=== PATIENT | male | born 1950 | race Caucasian/White ===

== ENCOUNTER 2019-03-18 14:10 | Inpatient (IN) | payer OTHER ==
[~2019-03-18] VITALS: Ht 177.8 cm; Wt 113.4 kg
[~2019-03-18 14:10] MED LIST: HYDACE5 PO; IBUP800 PO
[2019-03-18 15:15] LABS: BASOPHILS ABSOLUTE AUTO 0.02 K/mm3 (0.00-0.23); BASOPHILS PERCENT AUTO 0 % (0-2); EOSINOPHILS ABSOLUTE AUTO 0.01 K/mm3 (0.00-0.68); EOSINOPHILS PERCENT AUTO 0 % (0-6); Hematocrit 48.9 % (37.0-53.0); Hemoglobin 16.4 g/dL (13.5-17.5); IMMATURE GRAN ABSOLUTE AUTO 0.05 K/mm3 (0.00-0.10); IMMATURE GRAN PERCENT AUTO 0 % (0-1); LYMPHOCYTES ABSOLUTE AUTO 0.89 K/mm3 (0.84-5.20); LYMPHOCYTES PERCENT AUTO 6 % (21-46); MONOCYTES ABSOLUTE AUTO 0.76 K/mm3 (0.16-1.47); MONOCYTES PERCENT AUTO 5 % (4-13); Mean Corpuscular HGB 29.3 pg (26.0-34.0); Mean Corpuscular HGB Conc 33.5 g/dL (31.5-36.5); Mean Corpuscular Volume 87 fL (80-100); Mean Platelet Volume 11.1 fL (9.1-12.4); NEUTROPHILS ABSOLUTE AUTO 13.37 K/mm3 (1.96-9.15); NEUTROPHILS PERCENT AUTO 89 % (41-73); Platelet Count 234 K/mm3 (150-400); RDW Coefficient Variation 12.3 % (11.7-14.2); RDW Standard Deviation 39.7 fL (35.1-46.3)
[2019-03-18 15:28] LABS: Alanine Aminotransfer (ALT/SGP 40 U/L (12-78); Albumin/Globulin Ratio 1.1 (0.8-1.8); Alk Phos 88 U/L (50-136); Anion Gap 14 mmol/L (6-16); Aspartate Aminotrans (AST/SGOT 41 U/L (12-37); Bilirubin, Total 0.6 mg/dL (0.1-1.0); Blood Urea Nitrogen 26 mg/dL (8-24); Bun/Creatinine Ratio 16.6 (12.0-20.0); CO2, Blood 21 mmol/L (21-32); Calcium, Blood 9.4 mg/dL (8.5-10.1); Chloride, Blood 104 mmol/L (98-108); Creatinine, Blood 1.57 mg/dL (0.60-1.20); Globulin, Blood 3.6 g/dL (2.2-4.0); Glomerular Filtration Rate 47 (60-); Glucose, Blood 112 mg/dL (70-99); Potassium, Blood 3.9 mmol/L (3.5-5.5); Sodium, Blood 139 mmol/L (136-145); Total Protein, Blood 7.6 g/dL (6.4-8.2); Troponin I <0.015 ng/mL (0.000-0.040)
[2019-03-18] MEDS ORDERED: Aspirin EC81 MG PO (15:40)
[2019-03-18] MEDS ORDERED: METO100ER PO (15:40)
[2019-03-18] MEDS ORDERED: Benicar40 MG PO (15:40)
[2019-03-18 16:25] LABS: Free Thyroxine 1.3 ng/dL (0.70-1.60)
[2019-03-18 16:30] LABS: Thyroid Stimulating Hormone 1.57 uIU/mL (0.360-4.800)
--- NOTE | 2019-03-18 18:50 | NUR ---
Shift Summary Received pt from ER. A/O, pleasant and cooperative. SBA to bathroom. NS @ 100 mls/hr. Pt settled to room and oriented to call light. Denies chest pain and nausea at this time.
--- NOTE | 2019-03-18 18:53 | NUR ---
STUDENT HAD PT CARE PLEASE REFER TO STUDENT NOTE FOR SHIFT SUMMARY.
[2019-03-19 05:49] LABS: Anion Gap 8 mmol/L (6-16); Blood Urea Nitrogen 21 mg/dL (8-24); Bun/Creatinine Ratio 21.5 (12.0-20.0); CO2, Blood 25 mmol/L (21-32); Calcium, Blood 8.5 mg/dL (8.5-10.1); Chloride, Blood 109 mmol/L (98-108); Creatinine, Blood 0.98 mg/dL (0.60-1.20); Glomerular Filtration Rate >60 (60-); Glucose, Blood 82 mg/dL (70-99); Potassium, Blood 3.9 mmol/L (3.5-5.5); Sodium, Blood 142 mmol/L (136-145)
--- NOTE | 2019-03-19 07:43 | NUR ---
SUMMARY: NEW ADMIT SYNCOPAL EPISODE ON DR. DE DIOS'S SERVICE WITH DR. STERN ADMITTING. VSS, AFEBRILE, VOIDING ADEQUATE AMOUNTS CLEAR YELLOW URINE AND TOLERATING PO INTAKE. PT UP WITH SBA FOR BRP AND USES CALL LIGHT APPROPRIATELY. INCREASED TROPONIN FROM ER AT 1.35 IN NOC AND PT REMAINS ASYMPTOMATIC DENIES CP, SOB, DIZZINESS OR VISUAL CHANGES. CONTINUE TO MONITOR.
--- NOTE | 2019-03-19 08:52 | NUR ---
Echocardiogram completed.
[2019-03-19 09:04] LABS: Cholesterol 182 mg/dL (50-200); Triglycerides 105 mg/dL (30-160)
--- NOTE | 2019-03-19 09:55 | NUR ---
PT PLEASANT COOP A/O. DENIES PAIN. NO CHEST PAIN. PRESSURE. AT BEDSIDE. H/R REG, NO MURMER NOTED. PER TTELE: CONVERTED APPROX MIDNITE LAST MAXIMO. NOW NSR AT 70. NOTIFIED IN ROOM. LUNGS CLEAR, RESP EASY, UNLABORED. ON R/A. BT X4 LAST BM THIS AM. VOIDS BARHROOM. BED IN LOW POSITION, CALL LITE IN REACH, CALLS APPROP
--- NOTE | 2019-03-19 10:35 | NUR ---
0755 DAIN CALLED FROM LAB. TROPONIN LEVEL AT 1.130 WAS 1.35 THIS AM. IMPROVED. EXPECTED RESULT. DISCUSSED WITH FARM LOAN REPRESENTATIVE. ALEX. DID NOT CALL DR LEE. 0855 DAIN LAB CALLED. TROP 0.97 OFF AM 500 AM. ADVISED ORDERS SHOULD BE NEW TROP. PER DR LEE ORDERS. HE WILL CHECK. 0920 [facility] CALLED. NEED NEW TROP ORDERS. DONE. 1035 DAIN LAB CALLED. TROP 0.[address] NOT CALLED. DISCUSSED WITH FARM LOAN REPRESENTATIVE. LISE.
--- NOTE | 2019-03-19 15:46 | NUR ---
PT REQUEST STOP IVF. EATING/DRINKING. CALLED DR LEE. [facility] WITH HIS SEC.
--- NOTE | 2019-03-19 17:04 | NUR ---
DR WEBER CALLED, NO INTERVENTIONALIST TODAY. OKAY RESUME DIET. PLAN IS TO DO NUC STRESS TEST TOMORROW. NPO MIDNITE. IF POSITIVE, PLAN TO STAY FOR INTERVENTION., IF NEGATIVE, PLAN TO D.C TOMORROW. TREAT OUTPATIENT. DR WILL SEE TOMORROW.
--- NOTE | 2019-03-19 17:08 | NUR ---
PT PLEASANT TODAY. NO C/O CHEST PAIN, PRESSURE. DR JAMES TO ORDER NUC STRESS TEST FOR TOMORROW. EXPECT NPO MIDNITE. NO CAFFEINE. PT HAS REQUESTED STOP IVF. CALLED DR LEE. TC. NO OTHER CONCERNS AT THIS TIME. BED IN LOW POSITITION, CALL LITE IN REACH. CALLS APPROP.
--- NOTE | 2019-03-20 00:12 | NUR ---
0012: PT MADE NPO FOR STRESS TEST PROCEDURE LATER THIS DAY.
--- NOTE | 2019-03-20 06:53 | NUR ---
SUMMARY: ADMIT DAY 2 SYNCOPAL EPISODE WITH INCREASED TROPONIN ON DR. DE DIOS'S SERVICE. NO ACUTE CHANGES THIS SHIFT. VSS, AFEBRILE, TOLERATING PO INTAKE AND VOIDING WELL. DENIES CP, SOB, DIZZINESS, VISUAL CHANGES. NPO FOR STRESS TEST TODAY.
--- NOTE | 2019-03-20 07:45 | NUR ---
PT PLEASANT COOP A/O DENIES ANY CHEST PAIN, PRESSURE. AT BEDSIDE. H/R REG, NO MURMER NOTED. PER TELE: NSR AT 72. LLUNGS CLEAR. RESP EASY UNLABORED. ON R.A. BT X4 LAST BM TODAY. WALKS TO BATHROOM TO VOID. INDEPENDANT IN ROOM. BED IN LOW POSITION, CALL LITE IN REACH, CALLS APPROP.
--- NOTE | 2019-03-20 11:00 | NUR ---
PT REALLY INTERESTED TO KNOW IF GOING TO STRESS TEST OR TO ANGIO. STATES DR LEE TOLD HIMN MAYBE NOT STRESS JUST ANGIO. STATES THOUGHT DR WOULD TALK TO OR GUS. TOLD HIM I WOULD TRY TRACK DOWN. NO ORDERS WERE PLACED BY DR WEBER FROM [facility] OR THIS AM. PT REMAINS NPO. CALLED DR TOVAR. [facility]. FOUND DR WEBER IN PCU. HE TO CONTACT DR Mcarthur AND LET ME KNOW
--- NOTE | 2019-03-20 12:00 | NUR ---
CHARGE DISCUSSED PLAN WITH DR WEBER IN [facility]. OKAYED ORDERS FOR STRESS TEST. CALLED [facility]. NOT ABLE TO DO TODAY. WILL DO BOTH TEST TOMORROW, SAT. 8 AND 1PM. NOTIFIED PT OKAY TO EAT TODAY. NPO MIDNITE. PT AND FAMILY FRUSTRATED. TALKED WITH THEM TO HELP THEM UNDERSTAND THAT WE JUST DONT HAVE ABILITY TO DO TODAY, WILL START TOMORROW.
--- NOTE | 2019-03-20 19:47 | NUR ---
PT PLEASANT TODAY. DENIES CHEST PAIN PRESSURE TODAY. REMAINS IN NSR. NOT HAPPY ABOUT HAVING TO WAIT OUT TODAY. APPEARS TO UNDERSSTAND. HAVE DISCUSSED WITH ALMOND BLANCHER HAND. PLANS FOR NPO MIDNITE. TEST 8AM, THEN EAT. 2ND HALF TEST 1PM. NO OTHER CONCERNS AT THIS TIME. BED IN LOW POSITION, CALL LITE IN REACH, CALLS APPROP. INDEPENDANT IN ROOM.
--- NOTE | 2019-03-21 06:02 | NUR ---
PT WITH 1 CARDIAC STENT AND SYNCOPAL EPISODE AFTER HEAVY EXERTION CONTINUES IN NSR IN THE 70S PER TELE MONITOR. DENIES CHEST PAIN OR SOB. NPO FOR 2 PART CARDIAC STRESS TEST. PT HAS SUPPORTIVE SPOUSE AND SON HERE FOR SUPPORT. ON ROOM AIR INDEP IN ROOM WITHOUT COMPLAINTS.
--- NOTE | 2019-03-21 19:03 | NUR ---
SHIFT SUMMARY. A&OX4, INDEPENDENT IN ROOM. PT DENIES PAIN, SOB, N/V. DR. MOTA IN TO SEE PT THIS EVENING, PT AWAITING D/C HOME.
[2019-03-21] MEDS ORDERED: ACET325 PO (19:37)
--- NOTE | 2019-03-21 19:43 | NUR ---
DISCHARGE TO HOME WITH AT 1950. HAD NEG CARDIAC STRESS TEST. HAS NO CARDIAC PROBLEMS AT DISCHARGE. CONVERTED BACK TO NORMAL SINUS VIA TELE MONITOR. NO RETURN TO AFIB WITH RVR. VERBALIZED UNDERSTANDING OF DISCHAGE PLAN AND FOLLOW UP APPTS WITH NICOLASA MONITOR. VSS.
--- NOTE | 2019-03-21 19:49 | NUR ---
DISCHARGED TO HOME WITH ASSIST. TO FOLLOWUP WITH PROVIDERS. EDUCATION PROVIDED ON AFIB AND DISCUSSED ZIO PATCH HEART MONITER FOR 2 WEEKS DIRECTED BY . ZIO PATCH MONITOR ORDER FAXED TO [facility] AND SCHEDULING.
== END 2019-03-21 19:50 | disposition home or self-care (01) | DRG 309 ==
LOC: ER 14:10 → MEDS 14:11
PROVIDERS: Emergency Medicine; Family Medicine; Physician Assistant; ADMIT Hospitalist
DX: I48.91 Unspecified atrial fibrillation (principal); N17.9 Acute kidney failure, unspecified; E86.0 Dehydration; I10 Essential (primary) hypertension; Z95.5 Presence of coronary angioplasty implant and graft; I25.10 Atherosclerotic heart disease of native coronary artery without angina pectoris; L40.50 Arthropathic psoriasis, unspecified; Z87.891 Personal history of nicotine dependence; I07.1 Rheumatic tricuspid insufficiency; I25.9 Chronic ischemic heart disease, unspecified
CPT/HCPCS: 36415; 71046; 78452; 80048; 80053; 82465; 83735; 83880; 84439; 84443; 84478; 84484; 85025; 93005; 93010; 93017; 93306; 96361; 96374; 99285-25; A9500; G0378; J0706; J2785; J7030

== ENCOUNTER → 2020-03-15 | Outpatient (CLI) | payer OTHER ==
[~2020-03-15] MED LIST changes: +ACET325 PO; +Aspirin EC81 MG PO; +Benicar40 MG PO; +METO100ER PO
[2020-03-15 19:02] LABS: Free Thyroxine 1.08 ng/dL (0.70-1.60); Troponin I <0.015 ng/mL (0.000-0.040)
[2020-03-15 19:05] LABS: Alanine Aminotransfer (ALT/SGP 39 U/L (12-78); Albumin, Blood 3.6 g/dL (3.4-5.0); Alk Phos 100 U/L (50-136); Anion Gap 7 mmol/L (6-16); Aspartate Aminotrans (AST/SGOT 28 U/L (12-37); Bilirubin, Total 0.5 mg/dL (0.1-1.0); Blood Urea Nitrogen 19 mg/dL (8-24); Bun/Creatinine Ratio 23.4 (12.0-20.0); CO2, Blood 25 mmol/L (21-32); Calcium, Blood 8.9 mg/dL (8.5-10.1); Chloride, Blood 109 mmol/L (98-108); Creatinine, Blood 0.81 mg/dL (0.60-1.20); Globulin, Blood 3.7 g/dL (2.2-4.0); Glomerular Filtration Rate >60 (60-); Glucose, Blood 113 mg/dL (70-99); Potassium, Blood 4.1 mmol/L (3.5-5.5); Sodium, Blood 141 mmol/L (136-145); Total Protein, Blood 7.3 g/dL (6.4-8.2)
== END | disposition home or self-care (01) ==
LOC: LAB 18:41 → LAB SHORT 18:41
PROVIDERS: Family Medicine
DX: I48.0 Paroxysmal atrial fibrillation (principal)
CPT/HCPCS: 80053; 84439; 84443; 84484

== ENCOUNTER → 2020-05-24 | Outpatient (CLI) | payer OTHER | END | disposition home or self-care (01) | LOC: LAB 13:14 → LAB SHORT 13:14 | DX: B35.1 Tinea unguium (principal) | CPT/HCPCS: 87102 ==

== ENCOUNTER 2021-01-05 17:34 | Emergency (ER) | payer OTHER ==
[~2021-01-05] VITALS: Ht 177.8 cm; Wt 113.4 kg
[~2021-01-05 17:34] MED LIST changes: -Benicar40 MG PO; -METO100ER PO
[2021-01-05 18:10] LABS: BASOPHILS ABSOLUTE AUTO 0.03 K/mm3 (0.00-0.23); BASOPHILS PERCENT AUTO 0 % (0-2); EOSINOPHILS ABSOLUTE AUTO 0.01 K/mm3 (0.00-0.68); EOSINOPHILS PERCENT AUTO 0 % (0-6); Hematocrit 50.2 % (37.0-53.0); Hemoglobin 17.1 g/dL (13.5-17.5); IMMATURE GRAN ABSOLUTE AUTO 0.07 K/mm3 (0.00-0.10); IMMATURE GRAN PERCENT AUTO 0 % (0-1); LYMPHOCYTES ABSOLUTE AUTO 0.62 K/mm3 (0.84-5.20); LYMPHOCYTES PERCENT AUTO 4 % (21-46); MONOCYTES ABSOLUTE AUTO 0.84 K/mm3 (0.16-1.47); MONOCYTES PERCENT AUTO 5 % (4-13); Mean Corpuscular HGB 29.3 pg (26.0-34.0); Mean Corpuscular HGB Conc 34.1 g/dL (31.5-36.5); Mean Corpuscular Volume 86 fL (80-100); Mean Platelet Volume 10.8 fL (9.1-12.4); NEUTROPHILS ABSOLUTE AUTO 14.36 K/mm3 (1.96-9.15); NEUTROPHILS PERCENT AUTO 90 % (41-73); Platelet Count 216 K/mm3 (150-400); RDW Coefficient Variation 12.6 % (11.7-14.2); RDW Standard Deviation 38.9 fL (35.1-46.3); Red Blood Cell Count 5.83 M/mm3 (4.30-5.90); White Blood Cell Count 15.93 K/mm3 (4.00-11.30)
[2021-01-05 18:28] LABS: Alanine Aminotransfer (ALT/SGP 249 U/L (12-78); Albumin, Blood 3.6 g/dL (3.4-5.0); Alk Phos 170 U/L (50-136); Anion Gap 8 mmol/L (6-16); Aspartate Aminotrans (AST/SGOT 193 U/L (12-37); Bilirubin, Total 4.5 mg/dL (0.1-1.0); Blood Urea Nitrogen 20 mg/dL (8-24); Bun/Creatinine Ratio 21.7 (12.0-20.0); CO2, Blood 27 mmol/L (21-32); Calcium, Blood 8.9 mg/dL (8.5-10.1); Chloride, Blood 104 mmol/L (98-108); Creatinine, Blood 0.92 mg/dL (0.60-1.20); Globulin, Blood 3.7 g/dL (2.2-4.0); Glomerular Filtration Rate >60 (60-); Glucose, Blood 157 mg/dL (70-99); Potassium, Blood 4.1 mmol/L (3.5-5.5); Sodium, Blood 139 mmol/L (136-145); Total Protein, Blood 7.3 g/dL (6.4-8.2); Troponin I <0.015 ng/mL (0.000-0.040)
[2021-01-05] MEDS ORDERED: ATOR40TA PO (21:22)
[2021-01-05] MEDS ORDERED: ELIQUIS5 M3 PO (21:22)
[2021-01-05] MEDS ORDERED: Azor 5-40 MG T1 EACH PO (21:23)
[2021-01-05] MEDS ORDERED: METO50ER PO (21:23)
[2021-01-05] MEDS ORDERED: METO100ER PO (21:30)
[2021-01-05] MEDS ORDERED: VITAMIN D5000 UNIT PO (21:31)
[2021-01-05] MEDS ORDERED: VITAMIN B122500 MC1 PO (21:32)
[2021-01-05] MEDS ORDERED: MULTI-VITAMIN1 EAC2 PO (21:32)
[2021-01-05] MEDS ORDERED: CIDAFLEX TABLE1 EACH PO (21:33)
[2021-01-05] MEDS ORDERED: PROBIOTIC1 EA13 PO (21:33)
== END 2021-01-05 23:01 | disposition short-term general hospital (02) ==
LOC: ER 17:34
PROVIDERS: Physician Assistant
DX: K80.40 Calculus of bile duct with cholecystitis, unspecified, without obstruction (principal); I48.91 Unspecified atrial fibrillation; I10 Essential (primary) hypertension; I25.10 Atherosclerotic heart disease of native coronary artery without angina pectoris; Z79.899 Other long term (current) drug therapy; Z79.82 Long term (current) use of aspirin; Z88.1 Allergy status to other antibiotic agents; Z88.8 Allergy status to other drugs, medicaments and biological substances
CPT/HCPCS: 36415; 71046; 76705; 80053; 83690; 83880; 84484; 85025; 93005; 93010; 96365; 96375; 96376; 99285-25; J2270; J2543; J7030

== ENCOUNTER → 2022-03-18 | Outpatient (CLI) | payer OTHER ==
[~2022-03-18] MED LIST changes: +ATOR40TA PO; +Azor 5-40 MG T1 EACH PO; +CIDAFLEX TABLE1 EACH PO; +ELIQUIS5 M3 PO; +METO100ER PO; +METO50ER PO; +MULTI-VITAMIN1 EAC2 PO; +PROBIOTIC1 EA13 PO; +VITAMIN B122500 MC1 PO; +VITAMIN D5000 UNIT PO
== END | disposition home or self-care (01) ==
LOC: LAB SHORT 12:13
DX: N39.0 Urinary tract infection, site not specified (principal)
CPT/HCPCS: 87077; 87086; 87186

== ENCOUNTER → 2022-03-29 | Outpatient (CLI) | payer OTHER | END | disposition home or self-care (01) | LOC: LAB SHORT 15:43 → LAB 15:43 | DX: N39.0 Urinary tract infection, site not specified (principal); R31.9 Hematuria, unspecified | CPT/HCPCS: 87086 ==

== ENCOUNTER 2022-05-01 08:15 | Day surgery (SDC) | payer OTHER ==
[~2022-05-01] VITALS: Ht 177.8 cm; Wt 111.4 kg
[~2022-05-01 08:15] MED LIST changes: +ALLOPURINOL100 MG PO; +Amlodipine Bes2.5 MG PO; +FISH OIL 1,2001 EAC4 PO; +Fluocinonide15 GM; +OLME20 PO; +TRIDESILON60 GM
--- NOTE | 2022-05-01 12:46 | NUR ---
05/01/22 1246 Claudine Rajput LATE ENTRY FOR TODAY PATIENT VOMITED DURING PROCEDURE AND HAD A COUGH POST PROCEDURE. LUNG SOUNDS WERE CLEAR.
== END 2022-05-01 10:52 | disposition home or self-care (01) ==
LOC: ORSCSDS 08:15
PROVIDERS: Surgery
PROC: 0DBN8ZX Excision of Sigmoid Colon, Via Natural or Artificial Opening Endoscopic, Diagnostic (ICD-10-PCS; principal; 2022-05-01 09:45)
DX: Z12.11 Encounter for screening for malignant neoplasm of colon (principal); Z86.010 Personal history of colon polyps; K51.40 Inflammatory polyps of colon without complications; K57.30 Diverticulosis of large intestine without perforation or abscess without bleeding; I25.10 Atherosclerotic heart disease of native coronary artery without angina pectoris; I48.91 Unspecified atrial fibrillation; I10 Essential (primary) hypertension; Z87.891 Personal history of nicotine dependence; Z79.899 Other long term (current) drug therapy; Z79.01 Long term (current) use of anticoagulants
CPT/HCPCS: 88305; J2405; J2704; J7120

== ENCOUNTER 2022-10-02 07:44 | Day surgery (SDC) | payer OTHER ==
[~2022-10-02] VITALS: Ht 177.8 cm; Wt 116.3 kg
== END 2022-10-02 10:01 | disposition home or self-care (01) ==
LOC: ORSCSDS 07:44
PROVIDERS: Surgery
PROC: 0DBN8ZX Excision of Sigmoid Colon, Via Natural or Artificial Opening Endoscopic, Diagnostic (ICD-10-PCS; principal; 2022-10-02 09:00)
DX: Z12.11 Encounter for screening for malignant neoplasm of colon (principal); Z86.010 Personal history of colon polyps; K57.30 Diverticulosis of large intestine without perforation or abscess without bleeding; I25.10 Atherosclerotic heart disease of native coronary artery without angina pectoris; Z79.899 Other long term (current) drug therapy; I48.91 Unspecified atrial fibrillation; Z79.01 Long term (current) use of anticoagulants; I12.9 Hypertensive chronic kidney disease with stage 1 through stage 4 chronic kidney disease, or unspecified chronic kidney disease; N18.9 Chronic kidney disease, unspecified
CPT/HCPCS: 88305; J2405; J2704; J7120

== ENCOUNTER 2022-10-29 12:34 | Inpatient (IN) | payer OTHER, MEDICARE ==
[~2022-10-29] VITALS: Ht 177.8 cm; Wt 113.4 kg
--- NOTE | 2022-10-29 15:24 | NUR ---
ARRIVAL TO UNIT PT ARRIVED TO UNIT FROM ER VIA GURNEY. PT STOOD AND AMBULATED TO RESTROOM, NO WEAKNESS NOTED. PT DENIES ANY LIGHTHEADEDNESS WITH AMBULATION. HE REPORTS PAIN TOLERABLE CURRENTLY AT 01/28, LOCALIZED TO RUQ. HE REPORTS LAST TAKING ELIQUIS AT 8PM ON 10/28/22. SATS 97% OR HIGHER ON 2L NASAL CANULA. WILL TITRATE DOWN, PER ER REPORT SATS DROP WITH PAIN MEDICATION. IVF INFUSING PER EMAR AT THIS TIME. SPOUSE AT BEDSIDE. PT AA0X4.
[2022-10-29] MEDS ORDERED: Benicar40 MG PO (16:54)
[2022-10-29] MEDS ORDERED: AMLODIPINE-OLM1 EAC5 PO (16:54)
[2022-10-29] MEDS ORDERED: METO100ER PO (16:57)
[2022-10-29] MEDS ORDERED: METO50ER PO (16:57)
--- NOTE | 2022-10-29 17:22 | NUR ---
NO ACUTE CHANGES SINCE ARRIVAL TO FLOOR, MEDICATION PER EMAR. PT HAS PITTING EDEMA TO LOWER EXTREMETIES SINCE FLUIDS BEGAN INFUSING. DENIES ANY SOB.
--- NOTE | 2022-10-29 21:42 | NUR ---
NGT PLACED TO LOW INTERMITTENT SUCTION. SMALL AMOUNT OF LIGHT GREEN DRAINAGE PRESENT IN CANISTER.
--- NOTE | 2022-10-29 23:26 | NUR ---
PT REQUESTED TO HAVE IVF STOPPED AT THIS TIME. EDUCATED ON IVF ORDER. LUNG SOUNDS CLEAR T/O. BLE STILL WITH +1 EDEMA. IV SL AT THIS TIME EXCEPT FOR IV ABX SCHEDULED.
[2022-10-30 04:20] LABS: Hemoglobin 18.9 g/dL (13.5-17.5); Mean Corpuscular HGB 28.3 pg (26.0-34.0); Mean Corpuscular HGB Conc 32.6 g/dL (31.5-36.5); Mean Corpuscular Volume 87 fL (80-100); Mean Platelet Volume 10.4 fL (9.1-12.4); Platelet Count 288 K/mm3 (150-400); RDW Coefficient Variation 13.9 % (11.7-14.2); RDW Standard Deviation 43.8 fL (35.1-46.3); Red Blood Cell Count 6.69 M/mm3 (4.30-5.90); White Blood Cell Count 30.43 K/mm3 (4.00-11.30)
--- NOTE | 2022-10-30 05:50 | NUR ---
SHIFT SUMMARY PT CONT TO REPORT HAVING A BLOATED AND "TIGHT" ABDOMEN DESPITE HAVING NGT PLACED. NGT PLACED TO LIS WITH ONLY 100CC OF LIGHT GREEN OUTPUT THIS SHIFT. CHEST XRAY ORDERED AND CONFIRMED PLACEMENT. PT CONT TO REPORT INTERMITTENT NAUSEA, BUT NO EMESIS SINCE NGT PLACEMENT. PT NPO AND IVF + ABX PER ORDERS. 50MCG IV FENTANYL FOR PAIN MANAGEMENT Q2H PRN. PT AND SPOUSE EDUCATED ON TREATMENT PLAN FREQUENTLY THIS SHIFT AND CONT TO HAVE MANY QUESTIONS.
[2022-10-30 05:54] LABS: BAND PERCENT MAN 7 % (0-8); BASOPHILS PERCENT MAN 0 % (0-2); EOSINOPHILS PERCENT MAN 0 % (0-6); LYMPHOCYTES ABSOLUTE MAN 1.21 K/mm3 (0.84-5.20); LYMPHOCYTES PERCENT MAN 4 % (21-46); METAMYELOCYTE PERCENT MAN 1 % (0-0); MONOCYTES ABSOLUTE MAN 1.52 K/mm3 (0.16-1.47); MONOCYTES PERCENT MAN 5 % (4-13); NEUTROPHILS ABSOLUTE MAN 27.38 K/mm3 (1.96-9.15); SEG NEUTROPHILS PERCENT MAN 83 % (41-73); TOTAL CELLS COUNTED 100
[2022-10-30 09:00] LABS: Calcium, Ionized (POC) 1.02 mmol/L (1.10-1.46); Chloride (POC) 103 mmol/L (98-108); Creatinine (POC) 2.9 mg/dL (0.8-1.3); Glucose (ISTAT POC) 223 mg/dL (70-99); Hemoglobin (POC) 20.1 g/dL (13.5-17.5); Potassium (POC) 4.5 mmol/L (3.5-5.5); Sodium (POC) 135 mmol/L (135-148); Total CO2 (POC) 17 mmol/L (21-32)
[2022-10-30 09:07] LABS: Albumin, Blood 2.5 g/dL (3.4-5.0); Albumin/Globulin Ratio 0.5 (0.8-1.8); Bilirubin, Total 2.1 mg/dL (0.1-1.0); Bun/Creatinine Ratio 21.5 (12.0-20.0); Calcium, Blood 9.4 mg/dL (8.5-10.1); Globulin, Blood 4.6 g/dL (2.2-4.0); Magnesium, Blood 2.9 mg/dL (1.6-2.4); Potassium, Blood 4.8 mmol/L (3.5-5.5); Total Protein, Blood 7.1 g/dL (6.4-8.2)
--- NOTE | 2022-10-30 09:17 | NUR ---
0908- PATIENT TRASFERED FROM SURGICAL FLOOR ROOM 221 VIA BED TO OR 2 WITH CONTINUOUS MONITOR AND SUPPLEMENTAL O2 VIA N/C @ 4L. PRE-OP PREP WAS COMPLETED IN PATIENT'S ROOM. BUILDING COORDINATOR NOTIFIED OF DISCONINUATION OF CENTRAL MONITORING DUE TO SURGERY.
--- NOTE | 2022-10-30 10:02 | NUR ---
10/30/22 1002 Jovanna Rodriguez CENTRAL LINE PLACED [phone] BETANCOURT
--- NOTE | 2022-10-30 11:57 | NUR ---
MORNING NURSE NOTE OBTAINED REPORT FROM NIGHT RN. ENTERED ROOM AT 0700 AND PATIENT LOOKED BAD. PALE AND SWEATY. RAPID BREATHING. GRUNTING AND MOANING. LIMBS NOTED TO BE COOL, NAIL BEDS DUSKY. ABD SEVERELY DISTENDED AND PAINFUL. PATIENT DENIED PASSING GAS OR BM. REPORTED NAUSEA, OCC VOMITING AND BELCHING. NG TO LOW INT SUCTION WITH 100 ML GREEN OUTPUT OVERNIGHT. VS CHECKED, BP SOFT, HR TACHY 105, RRR AT 36, TEMP NORMAL, SPO2 89% ON RA. DR BETANCOURT ARRIVED TO BEDSIDE, RECOMMENDED SURGERY TODAY TO PATIENT AND SPOUSE. GAVE ORDER FOR O2 VIA NC AND PLACEMENT OF A CLEMENTS AND A LACTIC ACID. OXYGEN PLACED. CLEMENTS INSERTED AND NOTED NO URINE OUTPUT. RECHECKED VS AND BP DROPPING INTO 90S AND 80S SYSTOLIC. PATIENT STATED HE FELT MISERABLE AND WAS NOT DOING WELL. CALLED DR LANDRY. OBTAINED ORDER FOR 1L NS BOLUS, STAT LACTIC, AND TRANSFER TO ICU. DR LANDRY AND DR BETANCOURT SPOKE AND DECIDED TO TAKE PATIENT URGENTLY TO OR. NS BOLUS STARTED, LAB OBTAINED BLOOD SAMPLE FOR LACTIC. ISTAT CHEM PANEL WAS RUN AT BEDSIDE. PREOP RNS ARRIVED TO TAKE PATIENT TO OR. PATIENT LEFT UNIT IN BED AT ABOUT 0900 FOR OR. CRITICAL LACTIC OF 8.[address] LAB[address] DR LANDRY, DAY SURGERY, AND DR BETANCOURT ALL NOTIFIED. REPORT CALLED TO MONITORING TECH ABOUT 1130.
--- NOTE | 2022-10-30 16:03 | NUR ---
ASSUMED CARE PT ARRIVED TO ICU ROOM 9 AT 1500 S/P OR ABDOMINAL PROCEDURE. PT ARRIVED ON VENT, SETTINGS AC 14, TV 500, PEEP 7, FIO2 80%. PT WITH SBP 50'S UPON ARRIVAL. DR TURCIOS ANESTHESIA PUSHED 200 MCG IV NEOSYNEPHRINE UPON ARRIVAL. DR DAILY AND DR BETANCOURT AT BEDSIDE. PT ON LEVOPHED AT 30 MCG/MIN. DREW GTT STARTED AT 150 MCG/MIN AND VASOPRESSIN 0.04 UNITS/HR. SBP 80-90'S, MAPS 55-70'S. NGT PLACED TO LIS WITH MINIMAL AMOUNT OF BILE OUTPUT NOTED. CENTRAL LINE TO RIJ C/D/I, PLACED IN OR. CLEMENTS IN PLACE WITH SCANT YELLOW OUTPUT WITH CLOTS NOTED. LARGE MIDLINE ABD INCISION WITH WOUND VAC IN PLACE. NO STOMA PRESENT. PT NOT SEDATED AT THIS TIME, PT NOT RESPONSIVE TO NOXIOUS STIMULI. PUPILS 4MM, EQUAL AND RESPONSIVE TO LIGHT. PULSES TO RADIAL SITES FAINT. UNABLE TO OBTAIN DOPPLER PEDAL PULSES. PT COLOR PALE/DUSKY THROUGHOUT. PT SPOUSE AND DAUGHTER UPDATED BY DR DAILY AND DR BETANCOURT. DR DAILY AT BEDSIDE TO PLACE FEMORAL ARTLINE AT THIS TIME. WILL CONTINUE TO MONITOR.
[2022-10-30 16:07] LABS: Hemoglobin 12.9 g/dL (13.5-17.5); Mean Corpuscular HGB 28.4 pg (26.0-34.0); Mean Corpuscular HGB Conc 31.5 g/dL (31.5-36.5); Mean Corpuscular Volume 90 fL (80-100); NRBC ABSOLUTE 0.06 K/mm3 (0.00-0.02); NRBC Auto 0.2 /100 WBC (0.0-0.2); Platelet Count 102 K/mm3 (150-400); RDW Coefficient Variation 13.8 % (11.7-14.2); Red Blood Cell Count 4.55 M/mm3 (4.30-5.90); White Blood Cell Count 29.85 K/mm3 (4.00-11.30)
[2022-10-30 16:11] LABS: Magnesium, Blood 2.6 mg/dL (1.6-2.4)
[2022-10-30 16:15] LABS: International Normalized Ratio 1.48; Prothrombin Time Results 15.1 Sec (9.7-11.5)
[2022-10-30 16:16] LABS: Albumin, Blood 1.1 g/dL (3.4-5.0); Albumin/Globulin Ratio 0.4 (0.8-1.8); Bilirubin, Total 1.2 mg/dL (0.1-1.0); Bun/Creatinine Ratio 16.4 (12.0-20.0); Creatinine, Blood 2.93 mg/dL (0.60-1.20); Globulin, Blood 2.5 g/dL (2.2-4.0); Phosphorus, Blood 7.4 mg/dL (2.5-4.9); Potassium, Blood 5.7 mmol/L (3.5-5.5)
[2022-10-30 16:17] LABS: Total Protein, Blood 3.6 g/dL (6.4-8.2)
[2022-10-30 16:31] LABS: PCO2 Arterial 41.9 mmHg (35-45); PO2 Arterial 174 mmHg (80-100); pH Blood Arterial 7.14 (7.35-7.45)
--- NOTE | 2022-10-30 18:26 | NUR ---
SHIFT SUMMARY NO ACUTE CHANGES SINCE ARRIVAL TO ICU. VENT SETTINGS REMAIN UNCHANGED. PT NOT SEDATED, PT NOT RESPONSIVE TO NOXIOUS STIMULI. NO PURPOSFUL MOVEMENTS NOTED. LEVOPHED, VASOPRESSIN, NEOSYNEPHRINE, EPI, AND LR INFUSING. MULTIPLE FAMILY MEMBERS AT BEDSIDE. ART LINE TO RIGHT FEMORAL SITE INTACT. SEE ICU FLOWSHEET FOR GTT TITRATIONS AND PREVIOUS SHIFT NOTE FOR MORE INFO. WILL CONTINUE TO MONITOR AND REPORT OFF TO ONCOMING RN.
--- NOTE | 2022-10-30 19:00 | NUR ---
ASSUMPTION OF CARE PT INTUBATED [facility] VENT SETTINGS AC/VC+ 14/500/7/80%. HE IS RECEIVING LEVOPHED 30MCG/KG/MIN, VASOPRESSIN 0.04UNITS/HR, NEOSYNEPHRINE 250MCG/MIN, LR 150ML/HR. EPI ON STANDBY AT THIS TIME. NEURO: PUPILS 4MM, EQUAL, SLUGGISH TO RESPOND TO LIGHT. SCLERAL EDEMA. NO COUGH/GAG REFLEX. PT DOES NOT RESPOND TO PAINFUL STIMULI WITH NAILBED PRESSURE. RESP: VENT SETTINGS LISTED. MINIMAL ETT SECRETIONS. LUNGS ARE COARSE IN UPPER LOBES, DIMINISHED IN BASES. COMPLIANT WITH VENT. CARDIAC: PT RECEIVING VASOPRESSORS TO MAINTAIN MAP >65. LINE TO R FEMORAL ARTERY FOR CONTINUOUS PRESSURES. RADIAL PULSES FAINT, DOPPLER PEDAL PULSES. PT TACHYCARDIC WITH RATE 140S. CAP REFILL >3SEC. GI: MIDLINE WOUND VAC IN PLACE WITH LARGE AMOUNT OF SANGUINEOUS DRAINAGE IN TUBING AND COLLECTION CHAMBER. DRESSING C/D/I. ABDOMEN SEVERLY DISTENDED, SURROUNDING TISSUE FIRM. NO BOWEL TONES. : CLEMENTS IN PLACE WITHOUT DRAINAGE. SKIN: PT PALE AND COOL TO TOUCH. TEMPORAL TEMP 98.0. FINGERS AND TOES DUSKY. FAMILY REPORTS SKIN "LOOKS MUCH BETTER THAN EARLIER". MEDICATIONS INFUSING VIA RIJ. APPROX 5CM OF CATHETER EXPOSED. DRESSING C/D/I. SPOUSE AND MULTIPLE FAMILY MEMBERS AT BEDSIDE AND UPDATED ON PLAN OF CARE. SEE SHIFT ASSESSMENT.
[2022-10-30 21:18] LABS: BAND PERCENT MAN 36 % (0-8); BASOPHILS PERCENT MAN 0 % (0-2); EOSINOPHILS ABSOLUTE MAN 0.59 K/mm3 (0.00-0.68); EOSINOPHILS PERCENT MAN 2 % (0-6); LYMPHOCYTES % ATYPICAL MANUAL 6 % (0-0); LYMPHOCYTES ABSOLUTE MAN 6.26 K/mm3 (0.84-5.20); LYMPHOCYTES PERCENT MAN 15 % (21-46); METAMYELOCYTE ABSOLUTE MAN 2.68 K/mm3 (0.00-0.00); METAMYELOCYTE PERCENT MAN 9 % (0-0); MONOCYTES ABSOLUTE MAN 0.89 K/mm3 (0.16-1.47); MONOCYTES PERCENT MAN 3 % (4-13); MYELOCYTE ABSOLUTE MAN 2.08 K/mm3 (0.00-0.00); MYELOCYTE PERCENT MAN 7 % (0-0); NEUTROPHILS ABSOLUTE MAN 17.31 K/mm3 (1.96-9.15); SEG NEUTROPHILS PERCENT MAN 22 % (41-73); TOTAL CELLS COUNTED 100
--- NOTE | 2022-10-30 22:06 | NUR ---
UPDATE PLAN FOR NELIA TO STAY TONIGHT AT BEDSIDE. NEOSYNEPHRINE TITRATED TO 300MCG/MIN AROUND 2029. PT DIAPHORETIC AT THIS TIME.
--- NOTE | 2022-10-30 23:50 | NUR ---
HYPOTENSION AT APPROX 2230, PT'S HR AND BP TRENDING DOWN. HR DECREASED TO MID 60S FROM THE 120S-130S, BP 87/28. EPINEPHRINE RESTARTED AND TITRATED TO 8MCG/MIN TO MAINTAIN MAP. HR INCREASED TO 100S-110S. BP INCREASING. EPINEPHRINE NOW TITRATED DOWN TO 2MCG/MIN. HR 110S, MAP >65. AT BEDSIDE, UPDATED ON EVENTS. VERBALIZES UNDERSTANDING.
[2022-10-31 03:18] LABS: PCO2 Arterial 31.2 mmHg (35-45); PO2 Arterial 150 mmHg (80-100); pH Blood Arterial 7.06 (7.35-7.45)
[2022-10-31 03:22] LABS: Hematocrit 20.8 % (37.0-53.0); Hemoglobin 6.5 g/dL (13.5-17.5); Mean Corpuscular HGB 28.8 pg (26.0-34.0); Mean Corpuscular HGB Conc 31.3 g/dL (31.5-36.5); Mean Corpuscular Volume 92 fL (80-100); NRBC ABSOLUTE 0.87 K/mm3 (0.00-0.02); NRBC Auto 4.4 /100 WBC (0.0-0.2); RDW Coefficient Variation 13.7 % (11.7-14.2); RDW Standard Deviation 46.2 fL (35.1-46.3); Red Blood Cell Count 2.26 M/mm3 (4.30-5.90); White Blood Cell Count 19.84 K/mm3 (4.00-11.30)
[2022-10-31 03:46] LABS: Magnesium, Blood 2.2 mg/dL (1.6-2.4)
[2022-10-31 03:58] LABS: Platelet Count 48 K/mm3 (150-400)
[2022-10-31 04:49] LABS: Albumin, Blood 0.9 g/dL (3.4-5.0); Albumin/Globulin Ratio 0.6 (0.8-1.8); Bilirubin, Total 0.8 mg/dL (0.1-1.0); Bun/Creatinine Ratio 13.7 (12.0-20.0); Calcium, Blood 6.4 mg/dL (8.5-10.1); Creatinine, Blood 3.42 mg/dL (0.60-1.20); Globulin, Blood 1.6 g/dL (2.2-4.0); Phosphorus, Blood 8.2 mg/dL (2.5-4.9); Total Protein, Blood 2.5 g/dL (6.4-8.2)
[2022-10-31 04:56] LABS: Potassium, Blood 6.2 mmol/L (3.5-5.5)
--- NOTE | 2022-10-31 05:21 | NUR ---
UPDATE PT REMAINS UNRESPONSIVE. R PUPIL 5MM, FIXED. L PUPIL 4MM, FIXED. ABSENT CORNEAL REFLEX BILATERALLY. NO COUGH/GAG REFLEX. NO RESPONSE TO PAINFUL STIMULI. PT RECEIVING LEVOPHED, VASOPRESSIN, NEOSYNEPHRINE, AND EPINEPHRINE. MAP RANGING 52-58. HR 80S-100S. DR DAILY NOTIFIED OF AM LABS. PLAN TO SUPPLEMENT CALCIUM CHLORIDE AND BEGIN D5W WITH BICARB. ORDER RECEIVED FOR 2UNITS PRBCS. NELIA REMAINS AT BEDSIDE AND UPDATED ON PT'S CONDITION. SHE IS DISCUSSING PLAN OF CARE WITH FAMILY WHO IS ATTEMPTING TO FLY FROM [place].
[2022-10-31 05:57] LABS: BAND PERCENT MAN 24 % (0-8); BASOPHILS PERCENT MAN 0 % (0-2); EOSINOPHILS PERCENT MAN 0 % (0-6); LYMPHOCYTES ABSOLUTE MAN 1.98 K/mm3 (0.84-5.20); LYMPHOCYTES PERCENT MAN 10 % (21-46); METAMYELOCYTE ABSOLUTE MAN 1.98 K/mm3 (0.00-0.00); METAMYELOCYTE PERCENT MAN 10 % (0-0); MONOCYTES ABSOLUTE MAN 1.98 K/mm3 (0.16-1.47); MONOCYTES PERCENT MAN 10 % (4-13); NEUTROPHILS ABSOLUTE MAN 10.71 K/mm3 (1.96-9.15); SEG NEUTROPHILS PERCENT MAN 30 % (41-73); TOTAL CELLS COUNTED 100
[2022-10-31 06:00] LABS: MYELOCYTE ABSOLUTE MAN 2.77 K/mm3 (0.00-0.00); MYELOCYTE PERCENT MAN 14 % (0-0); PROMYELOCYTE ABSOLUTE MAN 0.39 K/mm3 (0.00-0.00); PROMYELOCYTE PERCENT MAN 2 % (0-0)
--- NOTE | 2022-10-31 06:46 | NUR ---
SHIFT SUMMARY PT REMAINS INTUBATED WITH VENT SETTINGS AC/VC 14/500/7/70%. HE IS RECEIVING LEVOPHED 30MCG/MIN, VASOPRESSIN 0.04UNITS/HR, NEOSYNEPHRINE 300MCG/MIN, EPINEPHRINE 10MCG/MIN, AND D5W WITH BICARB. NEURO: R PUPIL 4MM, FIXED. L PUPIL 5MM, FIXED. ABSENT CORNEAL REFLEX. NO COUGH/GAG REFLEX. PT REMAINS UNRESPONSIVE. LIMBS FLACCID. RESP: VENT SETTINGS LISTED. LUNGS ARE COARSE, DIMINISHED IN BASES. SCANT ETT SECRETIONS AND ORAL SECRETIONS. DIFFICULTY OBTAINING SPO2 READING. CARDIAC: VASOPRESSORS INFUSING TO MAINTAIN MAP >65. CONTINUOUS PRESSURE MEASURED WITH R FEM ART LINE. DOPPLER RADIAL AND PEDAL PULSES. CAP REFILL >3SEC. HR 80S-90S. MAP VARIES BETWEEN 53-69. GI: ABDOMEN REMAINS SEVERELY DISTENDED. MIDLINE WOUND VAC IN PLACE. TOTAL OUTPUT 1400ML THIS SHIFT. DRAINAGE WAS THICK SANGUINEOUS, NOW IS THIN SANGUINEOUS. DRESSING C/D/I. NGT CONNECTED TO LOW INT SUCTION WITH 500ML DARK BROWN/RED DRAINAGE. : CLEMENTS PATENT AND DRAINING SMALL AMOUNT OF ELLIE URINE. SHIFT OUTPUT 30ML THIS SHIFT. SKIN: PALE, DIAPHORETIC AT TIMES. FINGERS AND TOES COOL AND DUSKY. AFEBRILE. RIJ REMAINS IN PLACE. DRESSING CHANGED THIS SHIFT. R FEM ART LINE IN PLACE, ZEROED THIS SHIFT. DRERSSING C/D/I. PIV IN LFA. HAS REMAINED AT BEDSIDE THROUGHOUT SHIFT. AND CHILDREN HAVE DECIDED TO CHANGE PT TO LIMITED CODE STATUS, NO CHEST COMPRESSIONS. UPDATED ON PLAN OF CARE. DR DAILY NOTIFIED OF AM LABS. PLAN TO TRANSFUSE 2UNITS PRBCS. CONTINUING TO MONITOR AT THIS TIME.
--- NOTE | 2022-10-31 07:15 | NUR ---
Assumed care of pt an 0700. Report received from Zulema FORD. Pt not on sedation. No cough, gag, or corneal reflexes. Negative dolls eyes. No response to pain. Both pupils approx 5 mm, oval in shape, not responsive to light. Vent ACVC + 14/500/7/70%. Actual RR 17. Unable to measure SpO2 due to poor perfusion despite specialty nasal probe and ear probe usages. Cyanotic lips, gums, tongue. Capillary refill <3 seconds BLE. High/normal SBP, MAP is between 65-72 mmHg per art line. Norepinephrine is at 30 mcg/min, vasopressin 0.04 units/min, phenylephrine 300 mcg/min, epinephrine 10 mcg/min. Pt's spouse at bedside, plan of care discussed with her.
--- NOTE | 2022-10-31 08:27 | NUR ---
Assumed care of pt at 0700. Report received from Zulema FORD. Pt not on sedation. No cough, gag, or corneal reflexes. Both pupils approx 5 mm, oval in shape, not responsive to light. Vent ACVC+ 14/500/7/70%. Unable to measure SpO2 due to poor perfusion despite specialty nasal probe and ear probe usage. Perioral cyanosis, cyanotic toes. Capillary refill <3 seconds BLE.
--- NOTE | 2022-10-31 09:52 | NUR ---
"Spiritual Care | Referral by Dr. Serna Pt. is intubated and mostly non responsive. Spouse and Pts. sister are present. Pts. sister's roller skater arrived to pray with and over the Pt. Pts. spouse welcomed my visit. Facilitated an initial life review. Brought pastoral care to the spouse and spouses daughter who arrived later. Will stay closely connected to this family."
--- NOTE | 2022-10-31 10:00 | NUR ---
Yue Hardy, Kareem have been in to see patient this AM. Discussed atypical neuro findings. Palliative care and epic cadence specialists in to see patient and family. Patient's spouse states goal is for pt to survive until his son can come and visit him, which will be later today. Per Dr Serna, no H/H or BMP recheck necessary after giving blood and bicarb drip.
--- NOTE | 2022-10-31 13:32 | NUR ---
BP low. Maxed out on pressors. Notifed Dr Serna. Plan to continue with current plan of care. Family is planning on starting comfort measures when pt's son arrives from [place]. He has landed at the airport in [place] and will be driving here. Discussed with family that pt may before his son arrives. Family verbalizes understanding and acceptance.
--- NOTE | 2022-10-31 13:36 | NUR ---
Spiritual Care Follow Up - EOL info Family members welcome my visit. Pt. is still non responsive. Pts. son has landed in [place]. Re-establish rapport with spouse and other family members. Family had been considering homes, and have chosen [facility] as their home when the Pt. passes. Family verbalize gratitude for the spiritual care visit. Will continue to monitor and be available to the family.
--- NOTE | 2022-10-31 15:18 | NUR ---
"Spiritual Care | Post-mortum support Pt. had passed, when I met family in the hallway. Nurses prepared the room for family and those who are arriving. When family returned to room, scripture is read, and prayer was given for the family. This assembly associate confirmed with family to let the nurses know when the last person leaves, and the hospital will contact [facility] Family verbalized gratitude for the spiritual care support."
--- NOTE | 2022-10-31 15:42 | NUR ---
Patient had wide QRS rhythm and irregular HR from 60s to 120s. ETCO2 in low teens. This RN in room to update family. Pt then started having pauses and eventually had asystole. pronounced with Vinny Boyd RN. Pt extubated. Stopped all drips. All providers and final discharge notified. Family in room, awaiting for pt's son to arrive. Plan for pt to go to [facility].
--- NOTE | 2022-10-31 15:48 | NUR ---
Pt with family at bedside at 1438. Bedside RN Silvia was present. Condolences given. Pt's son did not make it from the airport to see him prior to his passing, but pt's , daughter and 2 sisters are present. Assisted bedside RN in post-mortem care, and family returned to pt's bedside. Family continuing to await son.
--- NOTE | 2022-11-07 09:26 | NUR ---
VITAL SIGNS VITAL SIGNS DOCUMENTED BELOW WERE DISCOVERED IN CAPSULE THAT HAD NOT FLOWED TO PATIENTS EMR 10/29/22 AT 19:43 (ENCOUNTER [id number]) B/P 112/72 TEMP 98.9 PULSE 91 OXYGEN SAT 93% 10/30/22 AT 04:17 (ENCOUNTER DE [id number]) B/P 99/60 PULSE 85
== END 2022-10-31 14:38 | DRG 981 ==
LOC: ER 12:34 → SURS 13:48 → ICUW 10-30 15:31
PROVIDERS: Internal Medicine Critical Care Medicine; Nurse Practitioner Acute Care; ADMIT Internal Medicine
PROC: 3E03329 Introduction of Other Anti-infective into Peripheral Vein, Percutaneous Approach (ICD-10-PCS; 2022-10-29)
PROC: 04HY32Z Insertion of Monitoring Device into Lower Artery, Percutaneous Approach (ICD-10-PCS; 2022-10-30)
PROC: B54BZZA Ultrasonography of Right Lower Extremity Veins, Guidance (ICD-10-PCS; 2022-10-30)
PROC: 02HV33Z Insertion of Infusion Device into Superior Vena Cava, Percutaneous Approach (ICD-10-PCS; 2022-10-30)
PROC: B548ZZA Ultrasonography of Superior Vena Cava, Guidance (ICD-10-PCS; 2022-10-30)
PROC: 0W9G0ZZ Drainage of Peritoneal Cavity, Open Approach (ICD-10-PCS; 2022-10-30)
PROC: 3E033XZ Introduction of Vasopressor into Peripheral Vein, Percutaneous Approach (ICD-10-PCS; 2022-10-30)
PROC: 0DTE0ZZ Resection of Large Intestine, Open Approach (ICD-10-PCS; 2022-10-30)
PROC: 30233N1 Transfusion of Nonautologous Red Blood Cells into Peripheral Vein, Percutaneous Approach (ICD-10-PCS; principal; 2022-10-31)
DX: M79.A3 Nontraumatic compartment syndrome of abdomen (principal); A41.9 Sepsis, unspecified organism; I61.9 Nontraumatic intracerebral hemorrhage, unspecified; R65.21 Severe sepsis with septic shock; K65.0 Generalized (acute) peritonitis; N17.0 Acute kidney failure with tubular necrosis; J96.01 Acute respiratory failure with hypoxia; K55.039 Acute (reversible) ischemia of large intestine, extent unspecified; K57.20 Diverticulitis of large intestine with perforation and abscess without bleeding; I48.20 Chronic atrial fibrillation, unspecified; D64.9 Anemia, unspecified; E87.5 Hyperkalemia; E83.51 Hypocalcemia; I25.10 Atherosclerotic heart disease of native coronary artery without angina pectoris; M19.90 Unspecified osteoarthritis, unspecified site; I10 Essential (primary) hypertension; M10.9 Gout, unspecified; E66.01 Morbid (severe) obesity due to excess calories; R74.01 Elevation of levels of liver transaminase levels; Z96.659 Presence of unspecified artificial knee joint; Z98.890 Other specified postprocedural states; Z95.5 Presence of coronary angioplasty implant and graft; Z88.1 Allergy status to other antibiotic agents; Z88.8 Allergy status to other drugs, medicaments and biological substances; Z79.899 Other long term (current) drug therapy; Z79.01 Long term (current) use of anticoagulants; Z79.02 Long term (current) use of antithrombotics/antiplatelets; Z87.891 Personal history of nicotine dependence; Z90.49 Acquired absence of other specified parts of digestive tract; Z68.35 Body mass index [BMI] 35.0-35.9, adult; Z87.19 Personal history of other diseases of the digestive system
CPT/HCPCS: 36415; 36430; 36620; 71045; 74177; 80047; 80053; 82330; 82803; 82947; 83605; 83735; 84100; 85014; 85025; 85610; 85730; 86850; 86900; 86901; 86923; 87040; 87070; 87205; 88307; 93005; 93010; 94002; 94003; 96365; 96375; 99285-25; A9270; C1751; C9113; J0171; J1100; J1170; J1720; J2250; J2370; J2405; J2543; J2704; J3010; J7030; J7040; J7050; J7060; J7070; J7120; P9016; P9047; Q9967